=== PATIENT | male | born 1995 | race African-American/Black ===

== ENCOUNTER 2018-12-20 12:23 | Observation (INO) ==
[2018-12-20 13:08] LABS: Urine Bilirubin Negative (NEGATIVE); Urine Blood 50 /ul (NEGATIVE); Urine Ketone Negative (NEGATIVE); Urine Nitrite Negative (NEGATIVE); Urine Protein Negative (NEGATIVE); Urine Urobilinogen Normal (NORMAL); Urine pH 7.5 pH (5.0-7.0)
[2018-12-20 13:19] LABS: Urine Appearance Clear (CLEAR); Urine Bacteria None Seen; Urine Color Yellow; Urine RBC 0-5 /hpf (0-5); Urine WBC None Seen /hpf (0-5)
[2018-12-20] MEDS ORDERED: NORMAL SALINE 1,000 ML IV ONE (13:27)
[2018-12-20] MEDS ORDERED: KETOROLAC TROMETHAMINE 30 MG/ML VIAL IV ONE (13:27)
[2018-12-20] MEDS ORDERED: ONDANSETRON HCL/PF 2 MG/ML VIAL IV ONE (13:27)
--- NOTE | 2018-12-20 13:32 | ERNOTE ---
Abdominal HPI - Narrative Date of Service: 12/20/18 - General Chief Complaint: Abdominal Pain Time Seen by Provider: 12/20/18 13:24 Source: patient, RN notes reviewed Exam Limitations: no limitations - Immun/Allergies/Home Medications Immunizatons: IMMUNIZATION HX Immunizations Up to Date Yes History of Influenza Vaccine No Hx Pneumococcal Vaccination No Allergies/Adverse Reactions: Allergies No Known Allergies Allergy (Unverified 12/20/18 12:47) Home Medications: HOME MEDICATIONS Lisinopril [Zestril] 10 mg PO DAILY 12/20/18 [Last Taken Unknown] - History of Present Illness Narrative: Raúl is a 23 year old male who presents to the ED for right flank and right lower quadrant pain that was present on awakening this morning. He has nausea but no vomiting. He reports having a normal bowel movement last night. He ate at approximately 1000 this morning without any change in the pain. His history is negative for any prior abdominal surgeries. He has no history or renal calculi. He denies any urinary symptoms. Date (Duration): 12/20/18 Time (Timing): 08:00 Timing: constant, getting worse Quality: severe, aching Activities at Onset: none Modifying Factors - (Improves): Absent: eating, rest Modifying Factors - (Worsens): Present: coughing, movement Associated Symptoms: Present: nausea. Absent: fever/chills, vomiting, swellin g/mass in abdomen Prior Abdominal Problems: Present: none Prior Treatment: Absent: recently seen Review of Systems - Review of Systems Constitutional: Present: malaise. Absent: recent illness, fever, chills EYE: Present: no symptoms reported ENT: Present: no symptoms reported Respiratory: Absent: shortness of breath, cough Cardiology: Absent: chest pain, syncope Gastrointestinal/Abdominal: Present: nausea, abdominal pain. Absent: vomiting, diarrhea, constipation Genitourinary: Absent: frequency, dysuria, hematuria, decreased urinary output Musculoskeletal: Absent: muscle pain, joint pain Skin: Absent: rash, lesions Neurological: Absent: headache, dizziness/light-headedness Endocrine: Present: no symptoms reported Hematologic/Lymphatic: Absent: easy bruising, easy bleeding Psych: Present: no symptoms reported Medical History (Last Reviewed 12/20/18 @ 17:24 by Evelia Arteaga NP) History of high blood pressure Surgical History: Surgical History (Last Reviewed 12/20/18 @ 17:24 by Evelia Arteaga NP) Hx of shoulder surgery Family History: Family History (Last Reviewed 12/20/18 @ 17:24 by Evelia Arteaga NP) Mother Hypertension Father Hypertension Social History: Preferred Language Khmer Do you have any temple or No cultural preference? Smoking Status Current some day smoker Alcohol Use none Drug Use none No Social History Section defined Physical Exam - Physical Exam General Appearance: Present: wd/wn, alert, mild distress Head Exam: Present: normal inspection Eye Exam: Normal inspection: bilateral Ears, Nose, Throat: Present: normal ENT inspection, normal pharynx Neck: Present: normal inspection, nontender, supple, full range of motion Respiratory: Present: no respiratory distress, normal breath sounds, no accessory muscle use, lungs clear Cardiovascular/Chest: Present: regular rate, rhythm, no murmur, normal peripheral pulses Gastrointestinal/Abdominal: Present: normal bowel sounds, nondistended, soft, tenderness - RLQ, rebound. Absent: guarding, mass Back Exam: Present: normal range of motion, no vertebral tenderness, CVA tenderness (R). Absent: CVA tenderness (L) Extremity Exam: Present: normal inspection, normal range of motion, no edema Neurological Exam: Present: alert, oriented, normal mood/affect, no motor/sensory deficits Skin Exam: Present: normal color, warm/dry Progress - Results and Orders Patient's Lab Results:: I have reviewed the patient's lab results. - Vital Signs Patient's Vital Signs:: I have reviewed the patient's vital signs. Vital Signs: Vital Signs 12/20/18 12:41 Temperature 97.5 C H Pulse Rate 76 Respiratory Rate 16 Blood Pressure 172/121 H - CT/Ultrasound CT/Ultrasound Narrative: TECHNIQUE: CT Abdomen/Pelvis W/C * Individualized dose optimization technique was used for the performed procedure including automated exposure control, adjustment of the mA and/or kV according to patient size and/or the iterative reconstruction technique. FINDINGS: Lung bases are clear. The liver and spleen are unremarkable. Gallbladder and pancreas are within normal limits. Adrenals and kidneys are within normal limits. No nephrolithiasis. No obstructive uropathy detected. Small hiatal hernia iden tified. No evidence for intestinal obstruction is identified. It is diffusely thickened and demonstrates periappendiceal inflammatory change compatible with appendicitis. No abscess collection. No free air. No free fluid. Bladder is unremarkable. No pericolonic inflammatory change. Osseous structures are intact. IMPRESSION: 1. Findings compatible with acute uncomplicated appendicitis. Electronically signed by Dylon Call M.D.. - Progress/Reassessment Chief Complaint: Abdominal Pain Progress:: Improved Plan - Plan Plan: Patient was initially given Toradol and Zofran IVP, as well as a 1 liter NS bolus. His pain improved. He vomited once after he started drinking contrast for his CT. He was then given compazine with relief of the nausea. His pain started worsening again and he was given Morphine [address] scan ultimately showed an acute uncomplicated appendicitis. Dr. Molina was contacted and will see the patient in the department. The patient will go to the OR shortly afterward. Departure Clinical Impression: Acute appendicitis Qualifiers: Acute appendicitis type: unspecified acute appendicitis type Qualified Code(s): K35.80 - Unspecified acute appendicitis - Departure Disposition: Still a patient Condition: Stable
[2018-12-20 13:48] LABS: Hematocrit 41.8 % (42.0-52.0); Hemoglobin 14.2 gm/dL (13.5-18.0); Mean Cell Volume 92.5 fl (78-100); Mean Corpuscular Hemoglobin 31.4 pg (27-31); Mean Platelet Volume 9.5 fl (8-11.3); Neutrophil # 10.4 K/mm3 (1.3-6.0); Neutrophil % 63.4 % (42-75.0); Platelet Count 402 K/mm3 (150-450); Red Blood Count 4.52 M/mm3 (4.7-6.0); Red Cell Distribution Width 12.3 % (11.5-14.0); White Blood Count 16.4 K/mm3 (4.0-10.5)
[2018-12-20 13:52] LABS: BUN/Creatinine Ratio 14.9 (9.0-21.6); Bilirubin, Total 0.2 mg/dL (0.0-1.1); Ca. Corrected For Albumin 9.1 mg/dL (8.4-10.2); Calcium * 9.4 mg/dL (7.9-10.9); Carbon Dioxide 28.1 mmol/L (24-32.6); Potassium 4.1 mmol/L (3.4-4.6); Total Protein 8.1 gm/dL (6.2-8.2)
[2018-12-20] MEDS ORDERED: DIATRIZOATE MEGLUMINE, SODIUM 30 ML BTL PO ONE (14:15)
[2018-12-20] MEDS ORDERED: PROCHLORPERAZINE EDISYLATE 5 MG/ML VIAL IV ONE (15:15)
[2018-12-20] MEDS ORDERED: MORPHINE SULFATE 2 MG/ML DISP.SYRIN IV ONE (15:30)
[2018-12-20] MEDS ORDERED: CEFOXITIN SODIUM 2 GM in DEXTROSE 5 % IN WATER 100 ML IV ONE ×2 (17:49)
[2018-12-20] MEDS ORDERED: BUPIVACAINE HCL/EPINEPHRINE 50 ML VIAL IJ ONE (17:50)
--- NOTE | 2018-12-20 17:59 | ANES ---
Anesthesia Pre Procedure Eval Vitals/Labs: Last Vital Signs Temp 36.7 C 12/20/18 16:25 Pulse 72 12/20/18 16:25 Resp 14 12/20/18 16:25 BP 169/115 H 12/20/18 16:25 Pulse Ox 99 12/20/18 16:25 HOME MEDICATIONS Lisinopril [Zestril] 10 mg PO DAILY 12/20/18 [Last Taken Unknown] Allergies/Adverse Reactions: Allergies Allergy/AdvReac Type Severity Reaction Status Date / Time No Known Allergies Allergy Unverified 12/20/18 12:47 - Planned Procedure Planned Procedure: APPY Medication List Reviewed:: Yes Allergies Verified: Yes Medical History (Last Reviewed 12/20/18 @ 17:56 by Kingsley Liz CRNA) History of high blood pressure Surgical History (Last Reviewed 12/20/18 @ 17:56 by Kingsley Liz CRNA) Hx of shoulder surgery Family History (Last Reviewed 12/20/18 @ 17:56 by Kingsley Liz CRNA) Mother Hypertension Father Hypertension - Family Anesthesia History Family History:: no untoward family reactions to anesthesia, no familial bleeding tendencies, no family history of clotting disorders, no family history of premature - Airway/Neck/Teeth Within Normal Limits:: Yes Teeth Condition: intact Neck Exam: full range of motion Mallampatti Score: 2 Thyromental (T-M) distance: > 6 cm Mandibulo Hyoid distance: > 3 cm - Respiratory Respiratory Physical: lungs clear Smoking Status: Light tobacco smoker Discussed smoking cessation including day of surgery: Yes - last ciggarrette this am Sleep Apnea currently treated: No Sleep Apnea by current assessment: No - Cardiovascular Cardiac History: hypertension Tolerate Activity: Good Heart Sounds: S1 & S2, Regular - Anesthesia Assessment and Plan ASA Class: PS, II, E Anesthesia Type Plan: General ET Planned difficult intubation/equipment available: No
--- NOTE | 2018-12-20 17:59 | HP ---
Chief Complaint - Chief Complaint Date of Service: 12/20/18 Time of Service: 17:52 Chief Complaint: appendicitis History of Present Illness: He started with abdominal pain earlier today. It migrated to [facility] and now hurts to bend, move, or cough. Presented to ER and found to have rebound tenderness, elevated WBC and CT scan evidence of acute appendicitis. Medical History (Last Reviewed 12/20/18 @ 17:54 by Sandy Molina MD) History of high blood pressure Surgical History: Surgical History (Last Reviewed 12/20/18 @ 17:54 by Sandy Molina MD) Hx of shoulder surgery Family History: Family History (Last Reviewed 12/20/18 @ 17:54 by Sandy Molina MD) Mother Hypertension Father Hypertension Social History: Preferred Language Mauritian Do you have any caodaism or No cultural preference? Smoking Status Current some day smoker Alcohol Use none Drug Use none No Social History Section defined Review Of Systems (GEN) - Review of Systems Generalized/Overall Review: Present: Malaise. Absent: Chills, Fever EENTM: Present: No Symptoms Reported Respiratory: Present: No Symptoms Reported Cardiac: Present: No Symptoms Reported Abdominal: Present: Nausea, Abdominal Pain Genitourinary: Present: No Symptoms Reported Musculoskeletal: Present: Joint Pain, Other - Left shoulder pain and occasionally "pops out" Neurological: Present: No Symptoms Reported Skin: Present: No Symptoms Reported Endocrine: Present: No Symptoms Reported Misc: All systems neg except as marked Immunizations: IMMUNIZATION HX Immunizations Up to Date Yes History of Influenza Vaccine No Hx Pneumococcal Vaccination No Allergies/Adverse Reactions: Allergies Allergy/AdvReac Type Severity Reaction Status Date / Time No Known Allergies Allergy Unverified 12/20/18 12:47 Home Medications: HOME MEDICATIONS Lisinopril [Zestril] 10 mg PO DAILY 12/20/18 [Last Taken Unknown] Exam - Exam Vital Signs: Vital Signs - Last Taken Temp 36.7 C 12/20/18 16:25 Pulse 72 12/20/18 16:25 Resp 14 12/20/18 16:25 BP 169/115 H 12/20/18 16:25 Pulse Ox 99 12/20/18 16:25 Constitutional: Present: Alert, Oriented x3, Cooperative, Well nourished, Mild distress ENT Exam: Present: normal ENT inspection, other - Mallampati 3 airway Eye Exam: bilateral eye: normal inspection Neck: Present: full range of motion, normal inspection Back Exam: Present: normal inspection Respiratory: Present: normal breath sounds Cardiovascular/Chest: Present: normal peripheral pulses Abdomen: Present: other - tender RLQ with guarding /Rectal: Present: Exam deferred Extremity: Present: normal range of motion, normal inspection, other - incisions left shoulder (healed) Skin Exam: Present: warm/dry Neurologic: Present: inspection and testing supervisor II-XII nml as tested, normal cerebellar test, oriented x 3 Appearance: Present: appropriate appearance, appropriate insight Eye contact: Present: cooperative, good eye contact, normal speech Thoughts: Present: normal thought pattern Diagnostic Studies: Abnormal Lab Results 12/20/18 12/20/18 12/20/18 Range/Units 12:57 13:32 13:32 WBC 16.4 H (4.0-10.5) K/mm3 RBC 4.52 L (4.7-6.0) M/mm3 Hct 41.8 L (42.0-52.0) % MCH 31.4 H (27-31) pg Immature Gran # (Auto) 0.07 H (0.000-0.0310) K/mm3 Eosinophils % 5.7 H (0.0-3.0) % Neutrophils # 10.4 H (1.3-6.0) K/mm3 Lymphocytes # 3.77 H (1.5-3.5) k/mm3 Monocytes # 1.2 H (0.0-1.0) k/mm3 Eosinophils # 0.9 H (0.0-0.7) k/mm3 Est GFR (Non-Af Amer) 166 H (60-130) mL/min Urine Blood 50 H (NEGATIVE) /ul Laboratory Results WBC 16.4 K/mm3 (4.0-10.5) H 12/20/18 13:32 RBC 4.52 M/mm3 (4.7-6.0) L 12/20/18 13:32 Hgb 14.2 gm/dL (13.5-18.0) 12/20/18 13:32 Hct 41.8 % (42.0-52.0) L 12/20/18 13:32 MCV 92.5 fl (78-100) 12/20/18 13:32 MCH 31.4 pg (27-31) H 12/20/18 13:32 MCHC 34.0 g/dl (32-36) 12/20/18 13:32 RDW 12.3 % (11.5-14.0) 12/20/18 13:32 Plt Count 402 K/mm3 (150-450) 12/20/18 13:32 MPV 9.5 fl (8-11.3) 12/20/18 13:32 Immature Gran % (Auto) 0.40 % (0.001-0.429) 12/20/18 13:32 Immature Gran # (Auto) 0.07 K/mm3 (0.000-0.0310) H 12/20/18 13:32 Neutrophils % 63.4 % (42-75.0) 12/20/18 13:32 Lymphocytes % 23.0 % (20-51) 12/20/18 13:32 Monocytes % 7.0 % (0.0-9) 12/20/18 13:32 Eosinophils % 5.7 % (0.0-3.0) H 12/20/18 13:32 Basophils % 0.5 % (0.0-1.0) 12/20/18 13:32 Nucleated RBC % 0.0 k/mm3 (0-1) 12/20/18 13:32 Neutrophils # 10.4 K/mm3 (1.3-6.0) H 12/20/18 13:32 Lymphocytes # 3.77 k/mm3 (1.5-3.5) H 12/20/18 13:32 Monocytes # 1.2 k/mm3 (0.0-1.0) H 12/20/18 13:32 Eosinophils # 0.9 k/mm3 (0.0-0.7) H 12/20/18 13:32 Absolute Basophils 0.1 k/mm3 (0.0-0.1) 12/20/18 13:32 Sodium 139 mmol/L (132-142) 12/20/18 13:32 Plasma Sodium 139 mmol/L (130-142) 12/20/18 13:32 Potassium 4.1 mmol/L (3.4-4.6) 12/20/18 13:32 Chloride 102 mmol/L (97-106) 12/20/18 13:32 Carbon Dioxide 28.1 mmol/L (24-32.6) 12/20/18 13:32 Anion Gap 13.0 mmol/L (6.8-13.8) 12/20/18 13:32 BUN 11 mg/dL (6-23) 12/20/18 13:32 Creatinine 0.74 mg/dL (0.4-1.4) 12/20/18 13:32 Est GFR (Non-Af Amer) 166 mL/min (60-130) H 12/20/18 13:32 BUN/Creatinine Ratio 14.9 (9.0-21.6) 12/20/18 13:32 Random Glucose 88 mg/dL (70-110) 12/20/18 13:32 Calcium 9.4 mg/dL (7.9-10.9) 12/20/18 13:32 Calcium Adj for Albumin 9.1 mg/dL (8.4-10.2) 12/20/18 13:32 Total Bilirubin 0.2 mg/dL (0.0-1.1) 12/20/18 13:32 AST 19 U/L (0-48) 12/20/18 13:32 ALT 37 U/L (19-67) 12/20/18 13:32 Alkaline Phosphatase 86 U/L (50-170) 12/20/18 13:32 Total Protein 8.1 gm/dL (6.2-8.2) 12/20/18 13:32 Albumin 4.0 gm/dl (3.4-5.0) 12/20/18 13:32 Urine Color Yellow 12/20/18 12:57 Urine Appearance Clear (CLEAR) 12/20/18 12:57 Urine pH 7.5 pH (5.0-7.0) 12/20/18 12:57 Ur Specific [place] 1.020 SP.GR. (1.005-1.030) 12/20/18 12:57 Urine Protein Negative mg/dL (NEGATIVE) 12/20/18 12:57 Urine Glucose (UA) Negative mg/dL (NEGATIVE) 12/20/18 12:57 Urine Ketones Negative mg/dL (NEGATIVE) 12/20/18 12:57 Urine Blood 50 /ul (NEGATIVE) H 12/20/18 12:57 Urine Nitrate Negative (NEGATIVE) 12/20/18 12:57 Urine Bilirubin Negative mg/dl (NEGATIVE) 12/20/18 12:57 Urine Urobilinogen Normal EU/dl (NORMAL) 12/20/18 12:57 Ur Leukocyte Esterase Negative /ul (NEGATIVE) 12/20/18 12:57 Urine RBC 0-5 /hpf (0-5) 12/20/18 12:57 Urine WBC None seen /hpf (0-5) 12/20/18 12:57 Ur Epithelial Cells None seen /hpf (0-5) 12/20/18 12:57 Urine Bacteria None seen (NONE) 12/20/18 12:57 Urine Culture Comments No culture indicated 12/20/18 12:57 CT shows acute appendicitis Assessment/Plan - Assessment/Plan (1) Acute appendicitis Assessment: Explained appendicitis and apendectomy. Risks and expected post-op course explained. Questions answered to his apparent satisfaction and informed consent for appendectomy (laparoscopic or open) obtained. SCD's, IV Mefoxin, chlorhexidine wipes. Will place in observation. Problem: Acute Qualifiers: Acute appendicitis type: with localized peritonitis Appendicitis gangrene presence: unspecified whether gangrene present Appendicitis perforation presence: without perforation Qualified Code(s): K35.80 - Unspecified acute appendicitis
[2018-12-20] MEDS: RINGER'S SOLUTION,LACTATED 1,000 ML IV PRN ×2 (18:20→19:25)
[2018-12-20] MEDS ORDERED: RINGER'S SOLUTION,LACTATED 1,000 ML IV PRN (19:59)
--- NOTE | 2018-12-20 20:14 | ANES ---
Post Anesthesia Discharge - Transfer of Care Transfer of Care handoff given to nurse: Yes - Discharge from PACU Discharge from PACU when meets criteria: Yes - Comfortable in PACU.
--- NOTE | 2018-12-20 20:23 | OR ---
Operative Report - Dictated Report Narrative: Date of operation 12/20/2018 Preoperative diagnosis: Acute appendicitis Postoperative diagnosis: Acute suppurative appendicitis with localized peritonitis Operation: Laparoscopic appendectomy Surgeon: GERTRUDE Molina MD Anesthesia: Gen. joseluis Liz CRNA Indications for procedure: The patient is a 23-year-old male who started having generalized abdominal discomfort earlier this morning. The pain moved to the right flank and right back. He presented to the emergency room for evaluation. He was found to have direct and rebound tenderness in the right lower quadrant with an elevated white blood cell count and CT scan evidence of acute appendicitis Findings: Acute suppurative appendicitis with localized peritonitis Narrative of procedure: The patient was identified preoperatively, and prior to the administration of anesthetic a multidisciplinary timeout was observed. The patient was placed supine, SCDs were applied, and 2 g of intravenous Mefoxin administered. Rapid sequence endotracheal intubation was performed. General endotracheal anesthetic was administered. The patient's abdomen was prepped with Betadine solution, and a generous operating field outlined with 4 sterile towels. The remainder the patient was covered with a sterile disposable drape. A transverse infraumbilical skin incision was made, and dissection was carried along the umbilical stalk until the fascia of the linea alba was encountered. This was incised. The peritoneum was elevated and incised to allow entry into the abdomen under direct vision. A Hussan cannula was placed and the abdomen insufflated with CO2. The laparoscopic camera was introduced and the abdomen briefly explored. Those portions of the liver, omentum, small and large bowel visualized appeared normal. The appendix was not immediately visible. Next under direct vision, 2 additional working ports were inserted through separate skin incisions, one in the suprapubic area one in the left lower quadrant. The apex of the cecum was retracted cephalad revealing the base of the appendix. This was grasped and retracted to deliver the remainder of an acutely inflamed appendix into view. A window was created adjacent to the appendiceal base which was then transected with a laparoscopic HETAL stapling device. The stump of the appendix was seen to be hemostatic and gas and liquid tight. The mesoappendix was divided with an application of a HETAL laparoscopic stapling device. It was seen to be hemostatic. The appendix was placed in an Endobag and parked in the right lower quadrant. The right lower quadrant was suctioned clean and hemostasis was assured. The small working ports were then withdrawn under direct vision to ensure entry site hemostasis. The appendix was removed in conjunction with the Hussan cannula. The pneumoperitoneum was allowed to escape, and after receiving a correct sponge needle and instrument count attention was turned to closing the abdomen. The fascia and peritoneum at the umbilicus were approximated with interrupted sutures of #1 Vicryl. Skin incisions were approximated with interrupted vertical mattress sutures of 4-0 nylon. The operative sites were washed and dried. Dressings of Bactroban ointment and large Band-Aids were applied to the small port sites. The umbilical incision was dressed with Bactroban ointment, 2 x 2, large Band-Aid, and Medipore tape. The operative procedure was terminated at this point. There was no measurable blood loss. 0.5% Marcaine with epinephrine was used for local anesthetic infiltration area the appendix was submitted to pathology. The patient tolerated the anesthetic and procedure well without complication and was transferred to the recovery room awake, extubated, and in stable condition. He will be admitted to observation for an additional dose of IV antibiotics due to the appearance of the appendix. Reviewed and electronically signed
--- NOTE | 2018-12-20 20:52 | ANES ---
Post Anesthesia Assessment - Vital Signs Vitals: Last Vital Signs Temp 36.9 C 12/20/18 20:45 Pulse 88 12/20/18 20:45 Resp 24 H 12/20/18 20:45 BP 183/115 H 12/20/18 20:45 Pulse Ox 96 12/20/18 20:45 Airway Patency: Normal - Mental Status Level Of Consciousness: Awake, Alert, Appropriate - Pain Level Pain Score: 0 - N/V Assessment Nausea/Vomiting Presence: None Dehydration:: No
[2018-12-20] MEDS: oxyCODONE HCL/ACETAMINOPHEN 1 TAB TABLET PO PRN (21:37)
[2018-12-21] MEDS: CEFOXITIN SODIUM 1 GM in DEXTROSE 5 % IN WATER 100 ML IV SCH ×4 (00:40→05:59)
[2018-12-21] MEDS: oxyCODONE HCL/ACETAMINOPHEN 1 TAB TABLET PO PRN ×2 (02:02→07:20)
--- NOTE | 2018-12-21 08:35 | DS ---
(1) Acute appendicitis Problem: Acute Qualifiers: Acute appendicitis type: with localized peritonitis Appendicitis gangrene presence: without gangrene Appendicitis perforation presence: without perforation Appendicitis abscess presence: without abscess Qualified Code(s): K35.30 - Acute appendicitis with localized peritonitis, without perforation or gangrene Procedures Performed: see notes below - laparoscopic appendectomy Results and Findings: Lab Pending Results 12/20/18 12:57: Urine Color Yellow, Urine Appearance Clear, Urine pH 7.5, Ur Specific [place] 1.020, Urine Protein Negative, Urine Glucose (UA) Negative, Urine Ketones Negative, Urine Blood 50 H, Urine Nitrate Negative, Urine Bilirubin Negative, Urine Urobilinogen Normal, Ur Leukocyte Esterase Negative, Urine RBC 0-5, Urine WBC None seen, Ur Epithelial Cells None seen, Urine Bacteria None seen, Urine Culture Comments No culture indicated 12/20/18 13:32: WBC 16.4 H, RBC 4.52 L, Hgb 14.2, Hct 41.8 L, MCV 92.5, MCH 31.4 H, MCHC 34.0, RDW 12.3, Plt Count 402, MPV 9.5, Immature Gran % (Auto) 0.40, Immature Gran # (Auto) 0.07 H, Neutrophils % 63.4, Lymphocytes % 23.0, Monocytes % 7.0, Eosinophils % 5.7 H, Basophils % 0.5, Nucleated RBC % 0.0, Neutrophils # 10.4 H, Lymphocytes # 3.77 H, Monocytes # 1.2 H, Eosinophils # 0.9 H, Absolute Basophils 0.1 12/20/18 13:32: Sodium 139, Plasma Sodium 139, Potassium 4.1, Chloride 102, Carbon Dioxide 28.1, Anion Gap 13.0, BUN 11, Creatinine 0.74, Est GFR (Non-Af A frank) 166 H, BUN/Creatinine Ratio 14.9, Random Glucose 88, Calcium 9.4, Calcium Adj for Albumin 9.1, Total Bilirubin 0.2, AST 19, ALT 37, Alkaline Phosphatase 86, Total Protein 8.1, Albumin 4.0 12/20/18 20:20: Pathology Specimen Spec to path Discharge Location: Home Disposition: Home self-care Condition: Good Discharge Activity: Activity as tolerated, No Lifting Discharge Diet: General/regular food Problem Oriented Discharge Instructions to Patient/Family: Laparoscopic Appendectomy, Adult, Care After, [id number] Additional Patient Instructions (free text): to f/u office 12/28/18 Prescriptions (Any new or edited meds): oxyCODONE HCL/ACETAMINOPHEN [Percocet 5 MG/325 MG] 1 tab PO Q4H PRN #30 tab PRN Reason: Moderate Pain (Pain Scale 4-6) Complete Home Medications List: Complete Home Medication List: Lisinopril [Zestril] 10 mg PO DAILY 12/20/18 oxyCODONE HCL/ACETAMINOPHEN [Percocet 5 MG/325 MG] 1 tab PO Q4H PRN #30 tab 12/21/18
[2018-12-21] MEDS ORDERED: LISINOPRIL 10 MG TABLET PO SCH (09:00)
[2018-12-21 10:13] VITALS: BP 138/89
== END 2018-12-21 10:35 | disposition home or self-care (01) ==
LOC: ER 12:23 → MS 17:47 → AMB 17:47
PROVIDERS: ADMIT Surgery; ATTEND Surgery
CPT/HCPCS: 36415; 74177; 80053; 81001; 85025; 88304; 96365; 96367; 96375; 99285; G0378; J2405; Q9967